=== PATIENT | male | born 1970 | race Caucasian/White ===

== ENCOUNTER 2024-07-29 13:31 | Emergency (ER) | payer OTHER ==
[~2024-07-29] VITALS: Ht 170.2 cm; Wt 81.6 kg
[2024-07-29] MEDS ORDERED: ONDANSETRON 4 MG/2 ML VIAL ONE (15:43)
[2024-07-29 15:54] LABS: BASOPHILS # (AUTO) 0.1 K/UL (0.0-0.2); BASOPHILS % (AUTO) 0.6 % (0.0-2.0); CALCIUM 8.6 mg/dL (8.5-10.1); DIFFERENTIAL COMMENT 0; HEMATOCRIT 44.1 % (36.7-47.1); HEMOGLOBIN 14.8 g/dL (12.5-16.3); LYMPHOCYTES # (AUTO) 0.9 K/uL (0.8-4.8); LYMPHOCYTES % (AUTO) 8.4 % (20.5-51.5); MEAN CORPUSCULAR HEMOGLOBIN 30.7 uug (23.8-33.4); MEAN CORPUSCULAR HGB CONC 34 g/dL (32.5-36.3); MEAN CORPUSCULAR VOLUME 91.2 fL (73.0-96.2); MONOCYTES % (AUTO) 18.8 % (0.0-11.0); NEUTROPHILS # (AUTO) 7.5 K/uL (1.8-8.9); NEUTROPHILS % (AUTO) 72.2 % (38.5-71.5); PLATELET COUNT (AUTO) 184 K/uL (152-348); POTASSIUM 4.3 mmol/L (3.5-5.1); RED BLOOD CELL COUNT(AUTO) 4.84 MIL/uL (4.06-5.63); WHITE BLOOD COUNT (AUTO) 10.4 K/uL (3.6-10.2)
[2024-07-29 16:00] LABS: BILIRUBIN,DIRECT 0.1 mg/dL (0.0-0.2); BILIRUBIN,TOTAL 0.5 mg/dL (0.2-1.0); TOTAL PROTEIN, SERUM 7.3 g/dL (6.4-8.2)
[2024-07-29] MEDS: ONDANSETRON 4 MG/2 ML VIAL IV ONE (16:02)
[2024-07-29] MEDS: IV NORMAL SALINE 1000 ML BAG IV ONE (16:02)
[2024-07-29] MEDS ORDERED: IBUP-1955 PO (16:25)
[2024-07-29] MEDS ORDERED: ONDA4TAB5 PO (16:25)
[2024-07-29] MEDS ORDERED: KETOROLAC TROMETHAMINE 15 MG INJ ONE (16:40)
[2024-07-29] MEDS: KETOROLAC TROMETHAMINE 15 MG INJ IVP ONE (16:43)
[2024-07-29 17:11] VITALS: BP 132/85; O2SAT 97
[2024-07-29 21:31] LABS: BAND % (MANUAL) 24 % (0-10); LYMPHOCYTES % (MANUAL) 10 % (20-40); MONOCYTES % (MANUAL) 20 % (2-10); NEUTROPHILS % (MANUAL) 46 % (42-75); PLATELET ESTIMATE ADEQUATE
== END 2024-07-29 17:11 | disposition home or self-care (01) ==
LOC: ER 13:31
DX: J06.9 Acute upper respiratory infection, unspecified (principal); R10.9 Unspecified abdominal pain; R11.0 Nausea; R63.0 Anorexia; E86.0 Dehydration; E87.1 Hypo-osmolality and hyponatremia; Z20.822 Contact with and (suspected) exposure to COVID-19; Z68.28 Body mass index [BMI] 28.0-28.9, adult
CPT/HCPCS: 99285; 96374; 71045; 96361; 96375; 87426; 87804 ×2; 80076; 80048; 83690; 85025; 36415; 93005; 85007; J1885; J2405; J7040; A4606; A4663